=== PATIENT | male | born 1930 | race Caucasian/White ===

== ENCOUNTER 2016-05-18 08:10 | Emergency (ER) | payer OTHER ==
--- NOTE | 2016-05-18 09:09 | DIAGNOSTIC IMAGING REPORT ---
PROCEDURE: XR CHEST 1 VIEW INDICATION: CHEST PAIN , initial encounter TECHNIQUE: Portable AP view 08:35 a.m. COMPARISON: None. FINDINGS: Poor inspiration with moderate elevation right hemidiaphragm. Mild bibasilar atelectasis . Mild cardiomegaly. Mediastinum and pulmonary vessels are normal. Right shoulder arthroplasty. IMPRESSION: 1. Mild cardiomegaly 2. Poor inspiration with elevated right hemidiaphragm and bibasilar atelectasis
--- NOTE | 2016-05-18 11:13 | DIAGNOSTIC IMAGING REPORT ---
PROCEDURE: CTA THORAX WITH CONTRAST INDICATION: Acute onset of shortness of breath, initial encounter TECHNIQUE: 90 ml of Isovue 370 was injected intravenously and axial images were obtained of the entire thorax with 3D sagittal and coronal MIP reconstructions. COMPARISON: Chest x-ray 05/18/2016 FINDINGS: No evidence of pulmonary emboli. Moderate elevation of the right hemidiaphragm with mild posterior right lower lobe consolidation, probable compressive atelectasis although pneumonia is not entirely excluded. Mild left basilar atelectasis. No effusions. There are a few subpleural blebs and both upper lobes. Mild right hilar adenopathy. Calcified subcarinal lymph nodes. Moderate atherosclerosis of the thoracic aorta. No aortic dissection or aneurysm. Coronary atherosclerosis. Mild cardiomegaly. Visualized upper abdomen is unremarkable. Moderate degenerative changes of the spine. IMPRESSION: 1. No evidence of pulmonary emboli 2. Elevated right hemidiaphragm with mild right lower lobe consolidation, probable compressive atelectasis but cannot completely exclude pneumonia. Correlate clinically. 3. Old granulomatous disease 4. Mild cardiomegaly 5. Results discussed with Dr. Michaels
--- NOTE | 2016-05-18 11:45 | ED NURSING NOTES ---
Clinical Report - Nurses [facility] [address] [place] [address] 05/18/2016 8:12 Patient: NEAL RODRIGUEZ I TRIAGE Triage time 0815 AM 08:19 May 18 2016. Acuity: LEVEL 2. Chief Complaint: CHEST PAIN. Alert (x4). ( 89 RA placed on 2L NC). SEPSIS SCREEN: Sepsis Screen. Negative (no infection suspected/documented). --08:30 Thalia Andrew R.N. 08:19 05/18/16. HR: 86. RR: 24. O2 saturation: 90%. Temp: 97.7 F. Pain level now 11/14. --08:30 Thalia Andrew R.N. 12:35 05/18/16. BP: 126/52. --12:38 Abelino Torres R.N. Weight: 81.6 kg stated. Height/Length: 67 inches Per Patient. BMI: 28.2. --12:33 Abelino Torres R.N. Medications Finasteride Oral. --08:31 Thalia Andrew R.N. Tamsulosin HCl Oral. --08:31 Thalia Andrew R.N. Colchicine Oral. --08:31 Thalia Andrew R.N. Latanoprost Ophthalmic. --08:31 Thalia Andrew R.N. Ferrous Sulfate Oral. --08:32 Thalia Andrew R.N. Vitamin c Oral. --08:32 Thalia Andrew R.N. R06-[id number] Oral. --08:32 Thalia Andrew R.N. Multivitamin Oral. --08:32 Thalia Andrew R.N. Losartan Potassium Oral. --08:32 Thalia Andrew R.N. Tramadol HCL Oral. --08:33 Thalia Andrew R.N. Brimonidine Tartrate External. --08:33 Thalia Andrew R.N. Triamcinolone Acetonide External. --08:34 Thalia Andrew R.N. Allergies None. --08:36 Thalia Andrew R.N. History Arrived by private vehicle. Historian: patient. Accompanied by family and (Nephew). This started yesterday. Onset. (1300). ( Patient states chest pain began at approx 1300 05/17/16. Described as heaviness in center of chest. no radiation. increasing intensity since onset). He has had difficulty breathing. 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 PAST MEDICAL HX: Hypertension. SOCIAL HX: Smoker- current status unknown (quit in 1985). Resides in a house. He lives alone. Has pet dog. --08:30 Thalia Andrew R.N. PAST MEDICAL HX: Immunizations: up-to-date. --08:35 Thalia Andrew R.N. PROBLEMS: Glaucoma. --08:35 Thalia Andrew R.N. ADDITIONAL SURGERIES: Knee Surgery. Shoulder Surgery. --08:23 Thalia Andrew R.N. Assessment The patient states feels the same. --08:30 Thalia Andrew R.N. Interventions ID band on patient. Protocol initiated. Precautions initiated. --08:30 Thalia Andrew R.N. NURSING PROGRESS NOTES 08:29 05/18/2016 Site #1 started via IV in the left forearm with an 20g angiocath, with aseptic technique and good blood return; one attempt. Blood drawn: rainbow set. Labeled in the presence of the patient and sent to the lab. Saline lock flushed with 10 mL saline. --08:29 Micaela Caal R.N. EKG time: (821). EKG was ordered, performed by a tech and shown to the ED physician. --08:39 Rebeca Valverde ER Tech1 08:30 05/18/2016 Aspirin PO 324 mg given. Confirmed 5 rights. --08:45 Micaela Caal R.N. Care transferred and report received. --08:47 Abelino Torres R.N. Patient identifiers checked. Call light placed in reach. Side rails up. Bed placed in lowest position. --08:48 Abelino Torres R.N. 09:00. ( Patient stood and voided at bedside. Urine sent). --09:35 Abelino Torres R.N. ( Patient remains in bed 1. 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 Patient denies pain but states has some pressure, like a band across upper chest.). --09:39 Abelino Torres R.N. 10:46 05/18/2016 Started bag #1 1000 mL IV Fluids IV NS (Saline); at 1000 mL/hr over 1 hour(s) via site #1 --10:51 Abelino Torres R.N. Patient returned from CT by stretcher with [employer]. --10:51 Abelino Torres R.N. 10:15 05/18/16. BP: 128/60. HR: 62. RR: 20. O2 saturation: 96%. Pain level now: 0/10. Additional comments: Denies pain but complains of tightness across chest. --12:16 Abelino Torres R.N. DISPOSITION / DISCHARGE 12:19 05/18/2016 Site #1 removed upon discharge. Catheter intact. Bandaid applied. --12:19 Abelino Torres R.N. 12:19 05/18/2016 IV Fluids IV NS Discontinued: bag #1 infused upon discharge. Total amount infused: 500 mL. --12:19 Abelino Torres R.N. Condition at departure: unchanged. No learning barriers present. Discharge instructions provided and reviewed with the patient. The patient was discharged by the physician. He was discharged home and accompanied by family. He left the Emergency Department ambulatory. --12:19 Abelino Torres R.N. 12:14 05/18/16. BP: 138/60. HR: 58. RR: 24. O2 saturation: 95%. Temp: 98 F. Pain level now 0/10. --12:19 Abelino Torres R.N. Locked/Released at 05/18/2016 12:39 by Abelino Torres R.N.
--- NOTE | 2016-05-18 11:45 | ED NURSING NOTES ---
Clinical Report - Nurses [facility] [address] [place] [address] 05/18/2016 8:12 Patient: NEAL RDORIGUEZ I TRIAGE Triage time 0815 AM 08:19 May 18 2016. Acuity: LEVEL 2. Chief Complaint: CHEST PAIN. Alert (x4). ( 89 RA placed on 2L NC). SEPSIS SCREEN: Sepsis Screen. Negative (no infection suspected/documented). --08:30 Thalia Andrew R.N. 08:19 05/18/16. HR: 86. RR: 24. O2 saturation: 90%. Temp: 97.7 F. Pain level now 11/14. --08:30 Thalia Andrew R.N. 12:35 05/18/16. BP: 126/52. --12:38 Abelino Torres R.N. Weight: 81.6 kg stated. Height/Length: 67 inches Per Patient. BMI: 28.2. --12:33 Abelino Torres R.N. Medications Finasteride Oral. --08:31 Thalia Andrew R.N. Tamsulosin HCl Oral. --08:31 Thalia Andrew R.N. Colchicine Oral. --08:31 Thalia Andrew R.N. Latanoprost Ophthalmic. --08:31 Thalia Andrew R.N. Ferrous Sulfate Oral. --08:32 Thalia Andrew R.N. Vitamin c Oral. --08:32 Thalia Andrew R.N. F49-Wtpxra Oral. --08:32 Thalia Andrew R.N. Multivitamin Oral. --08:32 Thalia Andrew R.N. Losartan Potassium Oral. --08:32 Thalia Andrew R.N. Tramadol HCL Oral. --08:33 Thalia Andrew R.N. Brimonidine Tartrate External. --08:33 Thalia Andrew R.N. Triamcinolone Acetonide External. --08:34 Thalia Andrew R.N. Allergies None. --08:36 Thalia Andrew R.N. History Arrived by private vehicle. Historian: patient. Accompanied by family and (Nephew). This started yesterday. Onset. (1300). ( Patient states chest pain began at approx 1300 05/17/16. Described as heaviness in center of chest. no radiation. increasing intensity since onset). He has had difficulty breathing. 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 PAST MEDICAL HX: Hypertension. SOCIAL HX: Smoker- current status unknown (quit in 1985). Resides in a house. He lives alone. Has pet dog. --08:30 Thalia Andrew R.N. PAST MEDICAL HX: Immunizations: up-to-date. --08:35 Thalia Andrew R.N. PROBLEMS: Glaucoma. --08:35 Thalia Andrew R.N. ADDITIONAL SURGERIES: Knee Surgery. Shoulder Surgery. --08:23 Thalia Andrew R.N. Assessment The patient states feels the same. --08:30 Thalia Andrew R.N. Interventions ID band on patient. Protocol initiated. Precautions initiated. --08:30 Thalia Andrew R.N. NURSING PROGRESS NOTES 08:29 05/18/2016 Site #1 started via IV in the left forearm with an 20g angiocath, with aseptic technique and good blood return; one attempt. Blood drawn: rainbow set. Labeled in the presence of the patient and sent to the lab. Saline lock flushed with 10 mL saline. --08:29 Micaela Caal R.N. EKG time: (821). EKG was ordered, performed by a tech and shown to the ED physician. --08:39 Rebeca Valverde ER Tech1 08:30 05/18/2016 Aspirin PO 324 mg given. Confirmed 5 rights. --08:45 Micaela Caal R.N. Care transferred and report received. --08:47 Abelino Torres R.N. Patient identifiers checked. Call light placed in reach. Side rails up. Bed placed in lowest position. --08:48 Abelino Torres R.N. 09:00. ( Patient stood and voided at bedside. Urine sent). --09:35 Abelino Torres R.N. ( Patient remains in bed 1. 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 Patient denies pain but states has some pressure, like a band across upper chest.). --09:39 Abelino Torres R.N. 10:46 05/18/2016 Started bag #1 1000 mL IV Fluids IV NS (Saline); at 1000 mL/hr over 1 hour(s) via site #1 --10:51 Abelino Torres R.N. Patient returned from CT by stretcher with [employer]. --10:51 Abelino Torres R.N. 10:15 05/18/16. BP: 128/60. HR: 62. RR: 20. O2 saturation: 96%. Pain level now: 0/10. Additional comments: Denies pain but complains of tightness across chest. --12:16 Abelino Torres R.N. DISPOSITION / DISCHARGE 12:19 05/18/2016 Site #1 removed upon discharge. Catheter intact. Bandaid applied. --12:19 Abelino Torres R.N. 12:19 05/18/2016 IV Fluids IV NS Discontinued: bag #1 infused upon discharge. Total amount infused: 500 mL. --12:19 Abelino Torres R.N. Condition at departure: unchanged. No learning barriers present. Discharge instructions provided and reviewed with the patient. The patient was discharged by the physician. He was discharged home and accompanied by family. He left the Emergency Department ambulatory. --12:19 Abelino Torres R.N. 12:14 05/18/16. BP: 138/60. HR: 58. RR: 24. O2 saturation: 95%. Temp: 98 F. Pain level now 0/10. --12:19 Abelino Torres R.N. Locked/Released at 05/18/2016 12:39 by Abelino Torres R.N.
--- NOTE | 2016-05-18 11:45 | ED ORDER SUMMARY ---
..... Patient: NEAL RODRIGUEZ I OrderSheet [facility] VisitID: [id number] [address] [place] [address] 86y, M Registration Date/Time: 05/18/2016 ORDER SHEET Weight: 81.6 kg (stated) Allergies: None GENERAL ORDERS: Chest 1V Urgent (08:05/18/2016 Alex ESPOSITO) (8:38 LNations ER Tech1) Developer Evangelist (Continuous) (:05/18/2016 Alex ESPOSITO) (Ack 8:35 LNations ER Tech1) (8:36 LNations ER Tech1) CBC w Diff Urgent (05/18/2016 Alex ESPOSITO) (Ack 8:36 LNations ER Tech1) (8:45 LSullivan R.N.) CMP Urgent (:05/18/2016 Alex ESPOSITO) (Ack 8:36 LNations ER Tech1) (8:45 LSullivan R.N.) UA-Culture if indicated Urgent (05/18/2016 Alex ESPOSITO) (Ack 8:36 LNations ER Tech1) (9:28 GMarshall R.N.) PTT Urgent (:05/18/2016 Alex ESPOSITO) (Ack 8:36 LNations ER Tech1) (8:45 LSullivan R.N.) PT with INR Urgent (:05/18/2016 Alex ESPOSITO) (Ack 8:36 LNations ER Tech1) (8:46 LSullivan R.N.) BNP Urgent (:05/18/2016 Alex ESPOSITO) (Ack 8:36 LNations ER Tech1) (8:46 LSullivan R.N.) D-Dimer Urgent (:05/18/2016 Alex ESPOSITO) (Ack 8:38 LNations ER Tech1) (8:46 LSullivan R.N.) CPK Urgent (05/18/2016 Alex ESPOSITO) (Ack 8:38 LNations ER Tech1) (8:46 LSullivan R.N.) Troponin-I Urgent (05/18/2016 Alex ESPOSITO) (Ack 8:38 LNations ER Tech1) (8:46 LSullivan R.N.) Oxygen (2 L/min) (NC) (08:05/18/2016 Alex ESPOSITO) (Ack 8:35 LNations ER Tech1) (8:36 LNations ER Tech1) Pulse oximeter (08:05/18/2016 Alex ESPOSITO) (Ack 8:35 LNations ER Tech1) (8:36 LNations ER Tech1) EKG - ER Stat (08:05/18/2016 Alex ESPOSITO) (Ack 8:35 LNations ER Tech1) (8:35 LNations ER Tech1) CTA Thorax w Cont (No) (02/06.4) Urgent (10:05/18/2016 Molina Ling) (10:29 GMarshall R.N.) MEDICATION ORDERS: Aspirin PO 325 mg (NOW) (:05/18/2016 Alex ESPOSITO) (8:45 LSullivan R.N.) IV FLUIDS: IV Saline Lock (:05/18/2016 Alex ESPOSITO) (8:29 LSullivan R.N.) IV NS : initial bolus none -, then 1000 mL/hr for X1 (NOW) (:05/18/2016 Molina Ling) (10:51 GMarshall R.N.) ORDER SHEET NOTES: [Electronically signed by Abelino Torres R.N. (12:39 05/18/2016)] [Electronically signed by Ankit Michaels Dr. (22:03 05/18/2016)] [Electronically locked/signed by Abelino Torres R.N. (12:39 05/18/2016)]
--- NOTE | 2016-05-18 11:45 | ED ORDER SUMMARY ---
..... Patient: NEAL RODRIGUEZ I OrderSheet [facility] VisitID: [id number] [address] [place] [address] 86y, M Registration Date/Time: 05/18/2016 ORDER SHEET Weight: 81.6 kg (stated) Allergies: None GENERAL ORDERS: Chest 1V Urgent (08:05/18/2016 Alex ESPOSITO) (8:38 LNations ER Tech1) Certified Alcohol Counselor (Continuous) (:05/18/2016 Alex ESPOSITO) (Ack 8:35 LNations ER Tech1) (8:36 LNations ER Tech1) CBC w Diff Urgent (05/18/2016 Alex ESPOSITO) (Ack 8:36 LNations ER Tech1) (8:45 LSullivan R.N.) CMP Urgent (:05/18/2016 Alex ESPOSITO) (Ack 8:36 LNations ER Tech1) (8:45 LSullivan R.N.) UA-Culture if indicated Urgent (05/18/2016 Alex ESPOSITO) (Ack 8:36 LNations ER Tech1) (9:28 GMarshall R.N.) PTT Urgent (:05/18/2016 Alex ESPOSITO) (Ack 8:36 LNations ER Tech1) (8:45 LSullivan R.N.) PT with INR Urgent (:05/18/2016 Alex ESPOSITO) (Ack 8:36 LNations ER Tech1) (8:46 LSullivan R.N.) BNP Urgent (:05/18/2016 Alex ESPOSITO) (Ack 8:36 LNations ER Tech1) (8:46 LSullivan R.N.) D-Dimer Urgent (:05/18/2016 Alex ESPOSITO) (Ack 8:38 LNations ER Tech1) (8:46 LSullivan R.N.) CPK Urgent (05/18/2016 Alex ESPOSITO) (Ack 8:38 LNations ER Tech1) (8:46 LSullivan R.N.) Troponin-I Urgent (05/18/2016 Alex ESPOSITO) (Ack 8:38 LNations ER Tech1) (8:46 LSullivan R.N.) Oxygen (2 L/min) (NC) (08:05/18/2016 Alex ESPOSITO) (Ack 8:35 LNations ER Tech1) (8:36 LNations ER Tech1) Pulse oximeter (08:05/18/2016 Alex ESPOSITO) (Ack 8:35 LNations ER Tech1) (8:36 LNations ER Tech1) EKG - ER Stat (08:05/18/2016 Alex ESPOSITO) (Ack 8:35 LNations ER Tech1) (8:35 LNations ER Tech1) CTA Thorax w Cont (No) (02/06.4) Urgent (10:05/18/2016 Molina Ling) (10:29 GMarshall R.N.) MEDICATION ORDERS: Aspirin PO 325 mg (NOW) (:05/18/2016 Alex ESPOSITO) (8:45 LSullivan R.N.) IV FLUIDS: IV Saline Lock (:05/18/2016 Alex ESPOSITO) (8:29 LSullivan R.N.) IV NS : initial bolus none -, then 1000 mL/hr for X1 (NOW) (:05/18/2016 Molina Ling) (10:51 GMarshall R.N.) ORDER SHEET NOTES: [Electronically signed by Abelino Torres R.N. (12:39 05/18/2016)] [Electronically signed by Ankit Michaels Dr. (22:03 05/18/2016)] [Electronically locked/signed by Abelino Torres R.N. (12:39 05/18/2016)]
--- NOTE | 2016-05-18 11:45 | ED CLINICAL REPORT ---
Clinical Report - Physicians/Mid Levels [facility] [address] [place] [address] 05/18/2016 8:12 Patient: NEAL RODRIGUEZ I Time Seen: 09:14; initial patient contact. Arrived- By private vehicle. Historian- patient. HISTORY OF PRESENT ILLNESS Chief Complaint: CHEST PAIN. This started yesterday and is still present. Onset during light activity. It is described as tightness and "pain" and it is described as located in the right chest, central chest and left chest area. No radiation. At its maximum, severity described as moderate. When seen in the E.D., severity described as mild. Modifying factors- worsened by movement and supine position. Relieved by upright position. Relief was partial. No nausea, vomiting or diaphoresis. He has had mild difficulty breathing. Similar symptoms previously: None. Recent medical care: Not recently seen/assessed. REVIEW OF SYSTEMS No fever, chills, abdominal pain, fever or calf pain. No cough, pedal edema or palpitations. All systems otherwise negative, except as recorded above. PAST HISTORY Glaucoma. HTN BPH RLE DVT SURGERIES: Knee Surgery. Shoulder Surgery. IVC filter. SOCIAL HISTORY Former smoker. ADDITIONAL NOTES The nursing notes have been reviewed with agreement regarding the chief complaint, PMH and patient medications and allergies. PHYSICAL EXAM Vital Signs: 05/18/2016 09:52 BP: 132/60. 05/18/2016 08:19 HR: 86. RR: 24. O2 saturation: 90%. Temp: 97.7 F. Have been reviewed. Blood pressure normal. Heart rate normal. Tachypneic. Temperature normal. Oxygen saturation low. Appearance: Alert. Oriented X3. No acute distress. Eyes: Eyes normal inspection. ENT: Pharynx normal. Neck: No JVD. CVS: Normal heart rate and rhythm. Heart sounds normal. Respiratory: No respiratory distress. Breath sounds normal. Abdomen: Soft and nontender. Bowel sounds normal. Skin: Skin warm and dry. Normal skin color. No rash. Extremities: No calf tenderness. No lower extremity edema. Neuro: Oriented X 3. LABS, X-RAYS, AND EKG EKG: EKG time: (821). No acute process. No acute ischemia. Normal sinus rhythm. Rate: 62. Normal P waves. First-degree atrioventricular block. Normal QRS complex. Left axis deviation. Normal ST and T waves, QT and QTc. EKG unchanged when compared with prior EKG. The study has been interpreted contemporaneously by me. The study has been independently viewed by me. Artifact present. I agree with and confirm the computer reading of the EKG. Chest X-ray: No acute disease. Mild cardiomegaly. Mildly elevated hemidiaphragm on the right. Normal lung markings present. Mediastinum normal. Great vessels normal. Soft tissues normal. No infiltrate. No fracture. No bony lesion present. Views: AP. Technique: poor inspiration. The X-rays were independently viewed by me and interpreted contemporaneously by me. Prior films were not available for comparison. Interpretation time: 09:41. Chest CT: (1. No evidence of pulmonary emboli 2. Elevated right hemidiaphragm with mild right lower lobe consolidation, probable compressive atelectasis but cannot completely exclude pneumonia. Correlate clinically. 3. Old granulomatous disease 4. Mild cardiomegaly). Chest CT performed with contrast. The study was interpreted by the radiologist and discussed with the radiologist. Interpretation time: 11:20. Laboratory Tests: UA-Culture if indicated: (MADDIE: 05/18/2016 09:10) ( MsgRcvd 05/18/2016 10:31) Final results Test Result Flag Units (Reference) URINE COLOR YELLOW URINE APPEARANCE CLEAR URINE GLUCOSE NEGATIVE (NEGATIVE) URINE BILIRUBIN NEGATIVE (NEGATIVE) URINE KETONE NEGATIVE (NEGATIVE) URINE SPECIFIC GRAVITY 1.025 (1.010-1.030) URINE PH 6.0 (5.0-8.0) URINE PROTEIN TRACE (NEGATIVE) URINE UROBILINOGEN 0.2 EU/dL (0.2-1.0) URINE NITRITE NEGATIVE (NEGATIVE) URINE BLOOD 1+ (NEGATIVE) URINE LEUK ESTERASE NEGATIVE (NEGATIVE) URINE RBC RARE rbc/hpf (0-1) URINE WBC RARE wbc/hpf (0-1) URINE EPITHELIAL CELLS RARE EPI/hpf (0-5) URINE BACTERIA NONE SEEN (NONE SEEN) URINE COMMENT CULT NOT INDICATED URINE CULTURES ARE SET-UP BASED ON THE FOLLOWING CRITERIA:POSITIVE NITRITEPOSITIVE LEUKOCYTE ESTERASEGREATER THAN 10 WHITE BLOOD CELLSMODERATE (2+) OR GREATER BACTERIA CBC w Diff: (MADDIE: 05/18/2016 08:24) ( [facility] [place] 09:41) Final results Test Result Flag Units (Reference) WHITE BLOOD COUNT 8.9 K/uL (4.5-11.5) RED BLOOD COUNT 3.15 L M/uL (4.50-5.90) HEMOGLOBIN 11.4 L gm/dL (13.5-17.5) HEMATOCRIT 34.7 L % (41.0-53.0) MEAN CELL VOLUME 110 H fL (80-100) MEAN CORPUSCULAR HGB 36 H pg (26-34) MEAN CORPUSCULAR HGB CONC 33 g/dL (31-37) RED CELL DISTRIBUTION WIDTH 15.9 H % (11.6-14.8) PLATELET COUNT 156 K/uL (150-400) PT with INR: (MADDIE: 05/18/2016 08:24) ( MsgRcvd 05/18/2016 09:25) Final results Test Result Flag Units (Reference) INR 1.3 H (0.8-1.2) Low Intensity Therapy: INR 1.5-2.0 PT range 18.5-23.1Mod.Intensity Therapy: INR 2.0-3.0 PT range 23.1-31.5High Intensity Therapy: INR 2.5-3.5 PT range 27.4-35.5High Intensity Therapy 2: INR 3.0-4.0 PT range 31.5-39.3 APTT 36 H SECONDS (24-34) D-DIMER QUANTITATIVE 1.08 H ug/mLFEU (0.27-0.52) The primary value of this quantitative assay relates toits negative predictive value (i.e. exclusion) of pulmonaryembolism/deep vein thrombosis/DIC.Elevated levels of d-dimer may also occur with:, age, cancer, inflammation, liver disease,post-op, infection, hematoma, coronary disease, peripheralarteriopathy, bleeding disorders and thrombolytic treatment.Results should be correlated with other clinical andradiological data.Testing Methodology: Latex Immunoassay BNP: (MADDIE: 05/18/2016 08:24) ( MsgRcvd 05/18/2016 09:35) Final results Test Result Flag Units (Reference) B-TYPE NATRIURETIC PEPTIDE 367 H pg/ml (5-100) CMP: (MADDIE: 05/18/2016 08:24) ( MsgRcvd 05/18/2016 09:40) Final results Test Result Flag Units (Reference) GLUCOSE 106 mg/dL (70-110) BUN 26 H mg/dL (7-18) CREATININE 1.4 H mg/dL (0.6-1.3) Estimated GFR 51.07 mL/min Estimated GFR- >60 mL/min Note: Persistent reduction over 3 months in eGFR<60 mL/min/1.73 m2 defines CKD. Patients with eGFR values>=60 mL/min/1.73 m2 may also have CKD if evidence ofpersistent proteinuria. Additional information may be foundat www.kidney.org. SODIUM 142 mmol/L (136-145) POTASSIUM 4.0 mmol/L (3.5-5.1) CHLORIDE 107 mmol/L (98-107) CARBON DIOXIDE 25 mmol/L (21-32) CALCIUM 9.3 mg/dL (8.5-10.1) TOTAL PROTEIN 8.4 H g/dL (6.4-8.2) ALBUMIN 3.6 g/dL (3.3-5.0) BILIRUBIN, TOTAL 1.0 mg/dL (0.0-1.0) ALKALINE PHOSPHATASE 71 U/L (46-116) AST (SGOT) 23 U/L (15-37) ALT (SGPT) 30 U/L (12-78) CPK 248 U/L (24-260) TROPONIN I <0.05 ng/mL (0.00-1.5) TROPONIN REFERENCE RANGE:<0.1 NEGATIVE0.1-1.5 INDETERMINANT>1.5 POSITIVE . PROGRESS AND PROCEDURES Course of Care: 05/18/2016 11:50 HR: 60. O2 saturation: 97%. Vital Signs: have been reviewed. Heart rate normal. Oxygen saturation normal. Disposition: Discharged home in good and improved condition. Condition: good. CLINICAL IMPRESSION Bacterial pneumonia. Vital signs recorded and reviewed; empiric antibiotics given- prescribed. Atypical chest pain .12 lead EKG performed. INSTRUCTIONS Prescription Medications: Azithromycin 250 mg tablets: take 2 orally today, followed by 1 orally every day for the next 4 days. Total course 5 days. No refills. Follow-up: Follow up with your doctor in about two days. Call for an appointment. Blood pressure screening was not performed during this visit because the patient has an active diagnosis of hypertension. (Electronically signed by Ankit Michaels Dr. 05/18/2016 22:03)
--- NOTE | 2016-05-18 22:04 | ED MAR SUMMARY ---
..... Medication Administration Record [facility] [address] [place] [address] Patient: NEAL RODRIGUEZ I Visit ID: [id number] 86y, M Weight: 81.6 kg Height/Length: 67 in BMI: 28.2 ALLERGIES: None Given 08:30 05/18/2016 Micaela Caal R.N. Medication Administered: ASPIRIN [PO], Dose: 324 mg PO. Medication Ordered: Aspirin PO 325 mg (NOW). Start 10:46 05/18/2016 Abeilno Torres R.N., Stop 12:19 05/18/2016 Abelino Torres R.N. Medication Administered: IV NS (SALINE), Dose: IV Fluids over 1 hour(s), Rate: 1000 mL/hr, Dispensed: 1000 mL bag, Site: #1 left forearm. Medication Ordered: IV NS : initial bolus none -, then 1000 mL/hr for X1 (NOW).
--- NOTE | 2016-05-18 22:04 | ED MED RECONCILIATION SUMMARY ---
Patient: NEAL RODRIGUEZ I Medication Reconciliation Report [facility] VisitID: [id number] [address] [place] [address] 86y, M Registration Date/Time: 05/18/2016 Weight: 81.6 kg Height/Length: 67 in. BMI: 28.2 ALLERGIES: None The patient's Home Medications are listed below: THE FOLLOWING MEDICATIONS NEED TO BE RECONCILED: L05-Szkbgu Oral Brimonidine Tartrate External Colchicine Oral Ferrous Sulfate Oral Finasteride Oral Latanoprost Ophthalmic Losartan Potassium Oral Multivitamin Oral Tamsulosin HCl Oral Tramadol HCL Oral Triamcinolone Acetonide External Vitamin c Oral The source(s) of the original Home Medication information: Not obtained. The following Medications were given to the patient in the Emergency Department: Aspirin [PO] PO 324 mg, administered: 05/18/2016 8:30:00 AM IV NS IV Fluids bolus 0, then 1000 mL/hr, administered: 05/18/2016 10:46:00 AM The following Medications were prescribed to the patient: Azithromycin 250 mg tablets: take 2 orally today, followed by 1 orally every day for the next 4 days. Total course 5 days. No refills. -- Ankit Michaels Dr.
--- NOTE | 2016-05-18 22:04 | ED MAR SUMMARY ---
..... Medication Administration Record [facility] [address] [place] [address] Patient: NEAL RODRIGUEZ I Visit ID: [id number] 86y, M Weight: 81.6 kg Height/Length: 67 in BMI: 28.2 ALLERGIES: None Given 08:30 05/18/2016 Micaela Caal R.N. Medication Administered: ASPIRIN [PO], Dose: 324 mg PO. Medication Ordered: Aspirin PO 325 mg (NOW). Start 10:46 05/18/2016 Abelino Torres R.N., Stop 12:19 05/18/2016 Abelino Torres R.N. Medication Administered: IV NS (SALINE), Dose: IV Fluids over 1 hour(s), Rate: 1000 mL/hr, Dispensed: 1000 mL bag, Site: #1 left forearm. Medication Ordered: IV NS : initial bolus none -, then 1000 mL/hr for X1 (NOW).
--- NOTE | 2016-05-18 22:04 | ED DISCHARGE INSTRUCTIONS ---
Patient: NEAL RODRIGUEZ I General Instructions [facility] VisitID: [id number] [place] [address] 86y, M Registration Date/Time: 05/18/2016 Bacterial pneumonia. Vital signs recorded and reviewed; empiric antibiotics given- prescribed. Atypical chest pain .12 lead EKG performed. INSTRUCTIONS Prescription Medications: Azithromycin 250 mg tablets: take 2 orally today, followed by 1 orally every day for the next 4 days. Total course 5 days. No refills. Follow-up: Follow up with your doctor in about two days. Call for an appointment. Blood pressure screening was not performed during this visit because the patient has an active diagnosis of hypertension. ADDITIONAL INFORMATION Chest Pain, Noncardiac Based on your visit today, the exact cause of your chest pain is not certain. Your condition does not seem serious and your pain does not appear to be coming from your heart. However, sometimes the signs of a serious problem take more time to appear. Therefore, please watch for the warning signs listed below. Home Care: Rest today and avoid strenuous activity. Take any prescribed medicine as directed. Follow Up with your doctor or this facility as instructed or if you do not start to feel better within 24 hours. Get Prompt Medical Attention if any of the following occur: A change in the type of pain: if it feels different, becomes more severe, lasts longer, or begins to spread into your shoulder, arm, neck, jaw or back Shortness of breath or increased pain with breathing Cough with dark colored sputum (phlegm) or blood Weakness, dizziness, or fainting Fever of 100.4F (38C) or higher, or as directed by your healthcare provider Swelling, pain or redness in one leg Azithromycin Oral tablet What is this medicine? AZITHROMYCIN (az ith teresa MYE sin) is a macrolide antibiotic. It is used to treat or prevent certain kinds of bacterial infections. It will not work for colds, flu, or other viral infections. How should I use this medicine? Take this medicine by mouth with a full glass of water. Follow the directions on the prescription label. The tablets can be taken with food or on an empty stomach. If the medicine upsets your stomach, take it with food. Take your medicine at regular intervals. Do not take your medicine more often than directed. Take all of your medicine as directed even if you think your are better. Do not skip doses or stop your medicine early. Talk to your water conservationist regarding the use of this medicine in children. Special care may be needed. What side effects may I notice from receiving this medicine? Side effects that you should report to your doctor or health personal care attendant as soon as possible: allergic reactions like skin rash, itching or hives, swelling of the face, lips, or tongue confusion, nightmares or hallucinations dark urine difficulty breathing hearing loss irregular heartbeat or chest pain pain or difficulty passing urine redness, blistering, peeling or loosening of the skin, including inside the mouth white patches or sores in the mouth yellowing of the eyes or skin Side effects that usually do not require medical attention (report to your doctor or health personal care attendant if they continue or are bothersome): diarrhea dizziness, drowsiness headache stomach upset or vomiting tooth discoloration vaginal irritation What may interact with this medicine? Do not take this medicine with any of the following medications: lincomycin This medicine may also interact with the following medications: amiodarone antacids cyclosporine digoxin magnesium nelfinavir phenytoin warfarin What if I miss a dose? If you miss a dose, take it as soon as you can. If it is almost time for your next dose, take only that dose. Do not take double or extra doses. Where should I keep my medicine? Keep out of the reach of children. Store at room temperature between 15 and 30 degrees C (59 and 86 degrees F). Throw away any unused medicine after the expiration date. What should I tell my health care provider before I take this medicine? They need to know if you have any of these conditions: kidney disease liver disease irregular heartbeat or heart disease an unusual or allergic reaction to azithromycin, erythromycin, other macrolide antibiotics, foods, dyes, or preservatives or trying to get breast-feeding What should I watch for while using this medicine? Tell your doctor or health personal care attendant if your symptoms do not improve. Do not treat diarrhea with over the counter products. Contact your doctor if you have diarrhea that lasts more than 2 days or if it is severe and watery. This medicine can make you more sensitive to the sun. Keep out of the sun. If you cannot avoid being in the sun, wear protective clothing and use sunscreen. Do not use sun lamps or tanning beds/booths. You have been given the following additional information: Chest Pain, Noncardiac Azithromycin Oral tablet (Electronically signed by Ankit Michaels Dr. 05/18/2016 22:03)
--- NOTE | 2016-05-18 22:04 | ED DISCHARGE INSTRUCTIONS ---
Patient: NEAL RODRIGUEZ I General Instructions [facility] VisitID: [id number] [place] [address] 86y, M Registration Date/Time: 05/18/2016 Bacterial pneumonia. Vital signs recorded and reviewed; empiric antibiotics given- prescribed. Atypical chest pain .12 lead EKG performed. INSTRUCTIONS Prescription Medications: Azithromycin 250 mg tablets: take 2 orally today, followed by 1 orally every day for the next 4 days. Total course 5 days. No refills. Follow-up: Follow up with your doctor in about two days. Call for an appointment. Blood pressure screening was not performed during this visit because the patient has an active diagnosis of hypertension. ADDITIONAL INFORMATION Chest Pain, Noncardiac Based on your visit today, the exact cause of your chest pain is not certain. Your condition does not seem serious and your pain does not appear to be coming from your heart. However, sometimes the signs of a serious problem take more time to appear. Therefore, please watch for the warning signs listed below. Home Care: Rest today and avoid strenuous activity. Take any prescribed medicine as directed. Follow Up with your doctor or this facility as instructed or if you do not start to feel better within 24 hours. Get Prompt Medical Attention if any of the following occur: A change in the type of pain: if it feels different, becomes more severe, lasts longer, or begins to spread into your shoulder, arm, neck, jaw or back Shortness of breath or increased pain with breathing Cough with dark colored sputum (phlegm) or blood Weakness, dizziness, or fainting Fever of 100.4F (38C) or higher, or as directed by your healthcare provider Swelling, pain or redness in one leg Azithromycin Oral tablet What is this medicine? AZITHROMYCIN (az ith teresa MYE sin) is a macrolide antibiotic. It is used to treat or prevent certain kinds of bacterial infections. It will not work for colds, flu, or other viral infections. How should I use this medicine? Take this medicine by mouth with a full glass of water. Follow the directions on the prescription label. The tablets can be taken with food or on an empty stomach. If the medicine upsets your stomach, take it with food. Take your medicine at regular intervals. Do not take your medicine more often than directed. Take all of your medicine as directed even if you think your are better. Do not skip doses or stop your medicine early. Talk to your senior investigator regarding the use of this medicine in children. Special care may be needed. What side effects may I notice from receiving this medicine? Side effects that you should report to your doctor or health critical care cns as soon as possible: allergic reactions like skin rash, itching or hives, swelling of the face, lips, or tongue confusion, nightmares or hallucinations dark urine difficulty breathing hearing loss irregular heartbeat or chest pain pain or difficulty passing urine redness, blistering, peeling or loosening of the skin, including inside the mouth white patches or sores in the mouth yellowing of the eyes or skin Side effects that usually do not require medical attention (report to your doctor or health critical care cns if they continue or are bothersome): diarrhea dizziness, drowsiness headache stomach upset or vomiting tooth discoloration vaginal irritation What may interact with this medicine? Do not take this medicine with any of the following medications: lincomycin This medicine may also interact with the following medications: amiodarone antacids cyclosporine digoxin magnesium nelfinavir phenytoin warfarin What if I miss a dose? If you miss a dose, take it as soon as you can. If it is almost time for your next dose, take only that dose. Do not take double or extra doses. Where should I keep my medicine? Keep out of the reach of children. Store at room temperature between 15 and 30 degrees C (59 and 86 degrees F). Throw away any unused medicine after the expiration date. What should I tell my health care provider before I take this medicine? They need to know if you have any of these conditions: kidney disease liver disease irregular heartbeat or heart disease an unusual or allergic reaction to azithromycin, erythromycin, other macrolide antibiotics, foods, dyes, or preservatives or trying to get breast-feeding What should I watch for while using this medicine? Tell your doctor or health critical care cns if your symptoms do not improve. Do not treat diarrhea with over the counter products. Contact your doctor if you have diarrhea that lasts more than 2 days or if it is severe and watery. This medicine can make you more sensitive to the sun. Keep out of the sun. If you cannot avoid being in the sun, wear protective clothing and use sunscreen. Do not use sun lamps or tanning beds/booths. You have been given the following additional information: Chest Pain, Noncardiac Azithromycin Oral tablet (Electronically signed by Ankit Michaels Dr. 05/18/2016 22:03)
--- NOTE | 2016-05-18 22:04 | ED MED RECONCILIATION SUMMARY ---
Patient: NEAL RODRIGUEZ I Medication Reconciliation Report [facility] VisitID: [id number] [address] [place] [address] 86y, M Registration Date/Time: 05/18/2016 Weight: 81.6 kg Height/Length: 67 in. BMI: 28.2 ALLERGIES: None The patient's Home Medications are listed below: THE FOLLOWING MEDICATIONS NEED TO BE RECONCILED: D79-Mazrec Oral Brimonidine Tartrate External Colchicine Oral Ferrous Sulfate Oral Finasteride Oral Latanoprost Ophthalmic Losartan Potassium Oral Multivitamin Oral Tamsulosin HCl Oral Tramadol HCL Oral Triamcinolone Acetonide External Vitamin c Oral The source(s) of the original Home Medication information: Not obtained. The following Medications were given to the patient in the Emergency Department: Aspirin [PO] PO 324 mg, administered: 05/18/2016 8:30:00 AM IV NS IV Fluids bolus 0, then 1000 mL/hr, administered: 05/18/2016 10:46:00 AM The following Medications were prescribed to the patient: Azithromycin 250 mg tablets: take 2 orally today, followed by 1 orally every day for the next 4 days. Total course 5 days. No refills. -- Ankit Michaels Dr.
== END 2016-05-18 12:20 | disposition home or self-care (01) ==
LOC: ED SRH 08:10
DX: J15.9 Unspecified bacterial pneumonia (principal); R07.89 Other chest pain; I10 Essential (primary) hypertension
CPT/HCPCS: 90004; 90100; 90616; 91320; 91556; 91643; 92610; 94001; 94060; 95059